=== PATIENT | male | born 1965 | race Caucasian/White ===

== ENCOUNTER 2016-10-01 08:20 | Emergency (ER) | payer BC ==
[2016-10-01 09:21] LABS: Hematocrit 44 % (42-52); Hemoglobin 14.7 g/dl (14.0-18.0); Mean Corpuscular HGB Conc 33 g/dl (31-36); Mean Corpuscular Hemoglobin 30 pg (27-31); Mean Corpuscular Volume 89 fL (80-94); Mean Platelet Volume 9 um3 (7.4-10.4); Red Blood Count 4.95 10^6/ul (4.0-5.4); Red Cell Distribution Width 14 % (10.5-15); White Blood Count 12.9 10^3/ul (3.5-10.8)
[2016-10-01 09:31] LABS: Albumin 4.3 g/dL (3.2-5.2); BUN/Creatinine Ratio 15.4 (8-20); Calcium 9.9 mg/dL (8.6-10.3); EGFR African American 136.1 (>60); EGFR Non-African American 105.8 (>60); Globulin 3.2 g/dL (2-4); Potassium 3.7 mmol/L (3.5-5.0); Total Bilirubin 0.8 mg/dL (0.2-1.0); Total Protein 7.5 g/dL (6.4-8.9)
[2016-10-01 09:42] VITALS: BP 138/88
--- NOTE | 2016-10-01 10:54 | ED ---
Daron Urban Benjamin, scribed for Raleigh Angel MD on 10/01/16 at 0902 . Lower Extremity - HPI Summary HPI Summary: 51yo [place]clot. Pt is 6 weeks s/p left ankle surgery and pt reports pain in left leg. - History of Current Complaint Chief Complaint: EDGeneral Stated Complaint: POSS BLOOD CLOT Time Seen by Provider: 10/01/16 08:45 Hx Obtained From: Patient Onset of Pain: Hours Onset/Duration: Hours Severity Initially: Moderate Severity Currently: Moderate Pain Intensity: 7 Pain Scale Used: 0-10 Numeric Timing: Constant Location: Is Discrete @ - LLE Associated Signs And Symptoms: Positive: Negative - Allergies/Home Medications Allergies/Adverse Reactions: Allergies Allergy/AdvReac Type Severity Reaction Status Date / Time No Known Allergies Allergy Verified 10/01/16 08:38 PMH/Surg Hx/FS Hx/Imm Hx Endocrine/Hematology History: Denies: Hx Diabetes, Hx Thyroid Disease Cardiovascular History: Denies: Hx Hypertension, Hx Pacemaker/ICD Respiratory History: Denies: Hx Asthma, Hx Chronic Obstructive Pulmonary Disease (COPD) GI History: Denies: Hx Ulcer History: Denies: Hx Renal Disease Musculoskeletal History: Denies: Hx Scoliosis Sensory History: Reports: Hx Contacts or Glasses - GLASSES Denies: Hx Hearing Aid Opthamlomology History: Reports: Hx Contacts or Glasses - GLASSES Neurological History: Denies: Hx Headaches Psychiatric History: Denies: Hx Panic Disorder - Surgical History Surgery Procedure, Year, and Place: [place] CARPAL TUNNEL Hx Anesthesia Reactions: No Infectious Disease History: No Infectious Disease History: Denies: Hx Hepatitis, Hx Human Immunodeficiency Virus (HIV), Traveled Outside the [place] in Last 30 Days - Family History Known Family History: Negative: Cardiac Disease, Hypertension, Diabetes - Social History Occupation: Employed Full-time Lives: With Family Alcohol Use: None Substance Use Type: Reports: None Smoking Status (MU): Former Smoker Amount Used/How Often: 1/2 PPD Review of Systems Constitutional: Negative Eyes: Negative ENT: Negative Cardiovascular: Negative Respiratory: Negative Gastrointestinal: Negative Genitourinary: Negative Positive: Myalgia - LLE pain Skin: Negative Neurological: Negative Psychological: Normal All Other Systems Reviewed And Are Negative: Yes Physical Exam Triage Information Reviewed: Yes Vital Signs On Initial Exam: Initial Vitals Temp Pulse Resp BP Pulse Ox 99.1 F 92 17 138/92 97 10/01/16 08:39 10/01/16 08:39 10/01/16 08:39 10/01/16 08:39 10/01/16 08:39 Vital Signs Reviewed: Yes Appearance: Positive: Well-Appearing, No Pain Distress, Well-Nourished Skin: Positive: Warm, Skin Color Reflects Adequate Perfusion, Dry Head/Face: Positive: Normal Head/Face Inspection Eyes: Positive: Normal ENT: Positive: Normal ENT inspection Neck: Positive: Supple, Nontender Respiratory/Lung Sounds: Positive: Clear to Auscultation, Breath Sounds Present Cardiovascular: Positive: RRR Abdomen Description: Positive: Nontender, Soft Bowel Sounds: Positive: Present Musculoskeletal: Positive: Strength/ROM Intact. Negative: Edema Left Neurological: Positive: Normal, Sensory/Motor Intact, Alert, Oriented to Person Place, Time, CN Intact II-III Diagnostics - Vital Signs Vital Signs Temp Pulse Resp BP Pulse Ox 10/01/16 08:39 99.1 F 92 17 138/92 97 - Laboratory Lab Results: Lab Results 10/01/16 10/01/16 10/01/16 Range/Units 09:00 09:00 09:00 WBC 12.9 H (3.5-10.8) 10^3/ul RBC 4.95 (4.0-5.4) 10^6/ul Hgb 14.7 (14.0-18.0) g/dl Hct 44 (42-52) % MCV 89 (80-94) fL MCH 30 (27-31) pg MCHC 33 (31-36) g/dl RDW 14 (10.5-15) % Plt Count 197 (150-450) 10^3/ul MPV 9 (7.4-10.4) um3 Neut % (Auto) 75.6 (38-83) % Lymph % (Auto) 16.3 L (25-47) % [place] % (Auto) 5.8 (1-9) % Eos % (Auto) 2.0 (0-6) % Baso % (Auto) 0.3 (0-2) % Absolute Neuts (auto) 9.8 H (1.5-7.7) 10^3/ul Absolute Lymphs (auto) 2.1 (1.0-4.8) 10^3/ul Absolute Monos (auto) 0.8 (0-0.8) 10^3/ul Absolute Eos (auto) 0.3 (0-0.6) 10^3/ul Absolute Basos (auto) 0 (0-0.2) 10^3/ul Absolute Nucleated RBC 0 10^3/ul Nucleated RBC % 0 INR (Anticoag Therapy) 1.12 H (0.89-1.11) Sodium 136 (133-145) mmol/L Potassium 3.7 (3.5-5.0) mmol/L Chloride 103 (101-111) mmol/L Carbon Dioxide 25 (22-32) mmol/L Anion Gap 8 (2-11) mmol/L BUN 12 (6-24) mg/dL Creatinine 0.78 (0.67-1.17) mg/dL Est GFR ( Amer) 136.1 (>60) Est GFR (Non-Af Amer) 105.8 (>60) BUN/Creatinine Ratio 15.4 (8-20) Glucose 111 H (70-100) mg/dL Calcium 9.9 (8.6-10.3) mg/dL Total Bilirubin 0.80 (0.2-1.0) mg/dL AST 17 (13-39) U/L ALT 31 (7-52) U/L Alkaline Phosphatase 66 (34-104) U/L Total Protein 7.5 (6.4-8.9) g/dL Albumin 4.3 (3.2-5.2) g/dL Globulin 3.2 (2-4) g/dL Albumin/Globulin Ratio 1.3 (1-3) Result Diagrams: 10/01/16 09:00 10/01/16 09:00 Lab Statement: Any lab studies that have been ordered have been reviewed, and results considered in the medical decision making process. Lower Extremity Course/Dx - Course Course Of Treatment: Mr. Wright presented stable with a DVT found in U/S. He has recently been on Lovenox and I will continue that and send him for F/U to be transitioned to PO meds. - Diagnoses Differential Diagnosis/HQI/PQRI: Positive: DVT Provider Diagnoses: DVT (deep venous thrombosis) Discharge - Discharge Plan Condition: Stable Disposition: HOME Prescriptions: Enoxaparin(*) [Lovenox(*)] 100 mg SUBCUT Q12HR #10 syringe Patient Education Materials: Leg Edema (ED) Referrals: Lilly Jesus NP [Primary Care Provider] - Additional Instructions: Please Follow up with your doctor in 2 days for your condition. The documentation as recorded by the Daron madsen Benjamin accurately reflects the service I personally performed and the decisions made by me, Raleigh Angel MD.
== END 2016-10-01 09:42 | disposition home or self-care (01) ==
LOC: ED 08:20
DX: I82.402 Acute embolism and thrombosis of unspecified deep veins of left lower extremity (principal); M79.605 Pain in left leg; Z87.891 Personal history of nicotine dependence
CPT/HCPCS: 36415; 80053; 85025; 85610; 99282

== ENCOUNTER 2016-12-17 09:01 | Emergency (ER) | payer BC ==
[2016-12-17] MEDS ORDERED: Ondansetron INJ* 2 MG/ML VIAL IV ONE (09:16)
[2016-12-17] MEDS ORDERED: HYDROmorphone* 1 MG/ML 1 ML SYR IV ONE (09:16)
[2016-12-17 09:39] LABS: Hematocrit 45 % (42-52); Hemoglobin 14.9 g/dl (14.0-18.0); Mean Corpuscular HGB Conc 33 g/dl (31-36); Mean Corpuscular Hemoglobin 30 pg (27-31); Mean Corpuscular Volume 90 fL (80-94); Mean Platelet Volume 9 um3 (7.4-10.4); Red Blood Count 4.99 10^6/ul (4.0-5.4); Red Cell Distribution Width 15 % (10.5-15)
[2016-12-17 09:57] LABS: Albumin 4.5 g/dL (3.2-5.2); BUN/Creatinine Ratio 16.5 (8-20); C Reactive Protein 4.8 mg/L (< 5.00); Calcium 9.6 mg/dL (8.6-10.3); EGFR African American 113.9 (>60); EGFR Non-African American 88.6 (>60); Globulin 2.7 g/dL (2-4); Potassium 3.6 mmol/L (3.5-5.0); Total Bilirubin 0.8 mg/dL (0.2-1.0); Total Protein 7.2 g/dL (6.4-8.9)
--- NOTE | 2016-12-17 09:59 | RAD ---
INDICATION: Nephrolithiasis. Left flank pain COMPARISON: CT March 01, 2014 TECHNIQUE: Noncontrast axial source images were acquired from the level hemidiaphragms to the symphysis pubis as part of CT imaging for renal stone. Lung bases: The lung bases are clear. Liver: The liver is enlarged with findings of hepatic steatosis. Noncontrast imaging shows no evidence of a hepatic mass or ductal dilatation. Gallbladder: There are no calcified gallstones. There is no evidence of wall thickening or pericholecystic fluid.. Spleen: The spleen is normal in size. The noncontrast CT appearance is normal. Pancreas: Noncontrast imaging shows no pancreatic mass or ductal dilitation. Adrenal glands: No masses are identified. Kidneys/Bladder: There are multiple tiny bilateral renal calculi. These calculi measure 2 to 3 mm. There is no obstruction. No renal mass is seen on noncontrast imaging. There is a tiny calculus within the bladder measuring 2 mm. Adenopathy: There is no evidence of intraperitoneal or retroperitoneal adenopathy. Evaluation is limited without oral contrast. Fluid collections: There are no free or localized fluid collections. Vessels: The aorta and iliac vessels are normal in caliber. There are no significant atherosclerotic changes. The IVC appears normal Pelvic organs: The prostate and seminal vesicles appear normal GI tract: Evaluation of the bowel is limited without oral contrast. There is a hiatal hernia. The small bowel is unremarkable. There are scattered diverticula of the colon. The appendix appears normal. Soft tissues: No soft tissue abnormalities of the extraperitoneal abdomen or pelvis are identified. Osseous structures: There are no acute osseous findings. There is spondylitic change of the thoracic spine. There is degenerative disc disease about L5-S1 with minor spur perforation and facet arthropathy IMPRESSION: 1. Bilateral nonobstructive nephrolithiasis. Small bladder calculus which may be related to recently passed stone. 2. Small hiatal hernia 3. Scattered diverticula. No CT evidence of acute diverticulitis. 4. Hepatomegaly with hepatic steatosis.
[2016-12-17 11:07] VITALS: BP 140/98
--- NOTE | 2016-12-17 12:51 | ED ---
GI/ HPI - HPI Summary HPI Summary: Patient arrives to ED with CC of left flank pain since this morning. History of kidney stones bilaterally and states this feels similar. Denies urinary symptoms such as retention, urgency, frequency or any known passing of a stone. Patient denies abdominal pain. Pain in L flank does not radiate and is constant. He rates it 8/10. Last CT scan was several years ago, and he does not see a urologist regularly. Denies other health history. He notes to nausea and 1 episode of vomiting d/t pain this am. - History of Current Complaint Chief Complaint: EDFlankPain Time Seen by Provider: 12/17/16 09:14 Stated Complaint: LT SIDE FLANK PAIN Hx Obtained From: Patient Onset/Duration: Started Hours Ago Timing: Constant Severity: Moderate Current Severity: Moderate Pain Intensity: 8 Location of Pain: Flank - left Pain Characteristics: Sharp, Colicy Associated Signs and Symptoms: Positive: Back Pain, Nausea, Vomiting Aggravating Factor(s): Nothing Alleviating Factor(s): Nothing - Allergy/Home Medications Allergies/Adverse Reactions: Allergies Allergy/AdvReac Type Severity Reaction Status Date / Time No Known Allergies Allergy Verified 12/17/16 09:02 PMH/Surg Hx/FS Hx/Imm Hx Previously Healthy: Yes Endocrine/Hematology History: Denies: Hx Diabetes, Hx Thyroid Disease Cardiovascular History: Denies: Hx Hypertension, Hx Pacemaker/ICD Respiratory History: Denies: Hx Asthma, Hx Chronic Obstructive Pulmonary Disease (COPD) GI History: Denies: Hx Ulcer History: Denies: Hx Renal Disease Musculoskeletal History: Denies: Hx Scoliosis Sensory History: Reports: Hx Contacts or Glasses - GLASSES Denies: Hx Hearing Aid Opthamlomology History: Reports: Hx Contacts or Glasses - GLASSES Neurological History: Denies: Hx Headaches Psychiatric History: Denies: Hx Panic Disorder - Surgical History Surgery Procedure, Year, and Place: 1984 LEFT LITTLE FINGER REPAIR, [place]. LT CARPAL TUNNEL Hx Anesthesia Reactions: No Infectious Disease History: No Infectious Disease History: Denies: Hx Hepatitis, Hx Human Immunodeficiency Virus (HIV), Traveled Outside the [place] in Last 30 Days - Family History Known Family History: Negative: Cardiac Disease, Hypertension, Diabetes - Social History Occupation: Employed Full-time Lives: With Family Alcohol Use: None Substance Use Type: Reports: None Hx Tobacco Use: No Smoking Status (MU): Former Smoker Amount Used/How Often: 1/2 PPD Review of Systems Constitutional: Negative Eyes: Negative Cardiovascular: Negative Respiratory: Negative Positive: Vomiting, Nausea Positive: flank pain Musculoskeletal: Negative Neurological: Negative Psychological: Normal All Other Systems Reviewed And Are Negative: Yes Physical Exam Triage Information Reviewed: Yes Vital Signs On Initial Exam: Initial Vitals Temp Pulse Resp BP Pulse Ox 98.5 F 90 20 172/120 99 12/17/16 09:02 12/17/16 09:02 12/17/16 09:02 12/17/16 09:02 12/17/16 09:02 Vital Signs Reviewed: Yes Appearance: Positive: Well-Appearing, Well-Nourished Skin: Positive: Warm, Skin Color Reflects Adequate Perfusion Head/Face: Positive: Normal Head/Face Inspection Eyes: Positive: SAMMIE, Conjunctiva Clear Neck: Positive: Supple, No Lymphadenopathy Respiratory/Lung Sounds: Positive: Clear to Auscultation, Breath Sounds Present Cardiovascular: Positive: Normal Abdomen Description: Positive: Soft Bowel Sounds: Positive: Present Musculoskeletal: Positive: Normal, Strength/ROM Intact Psychiatric: Positive: Normal AVPU Assessment: Alert - [place] Coma Scale Coma Scale Total: 15 Diagnostics - Vital Signs Vital Signs Temp Pulse Resp BP Pulse Ox 12/17/16 11:06 97.3 F 81 20 140/98 90 12/17/16 11:00 64 97 12/17/16 10:30 56 114/77 97 12/17/16 10:00 56 111/77 93 12/17/16 09:44 131/89 12/17/16 09:33 59 92 12/17/16 09:23 30 12/17/16 09:13 60 99 12/17/16 09:11 173/109 12/17/16 09:02 98.5 F 90 20 172/120 99 - Laboratory Lab Results: Lab Results 12/17/16 12/17/16 Range/Units 09:20 09:20 WBC 9.0 (3.5-10.8) 10^3/ul RBC 4.99 (4.0-5.4) 10^6/ul Hgb 14.9 (14.0-18.0) g/dl Hct 45 (42-52) % MCV 90 (80-94) fL MCH 30 (27-31) pg MCHC 33 (31-36) g/dl RDW 15 (10.5-15) % Plt Count 192 (150-450) 10^3/ul MPV 9 (7.4-10.4) um3 Neut % (Auto) 59.9 (38-83) % Lymph % (Auto) 29.1 (25-47) % [place] % (Auto) 7.2 (1-9) % Eos % (Auto) 3.3 (0-6) % Baso % (Auto) 0.5 (0-2) % Absolute Neuts (auto) 5.4 (1.5-7.7) 10^3/ul Absolute Lymphs (auto) 2.6 (1.0-4.8) 10^3/ul Absolute Monos (auto) 0.6 (0-0.8) 10^3/ul Absolute Eos (auto) 0.3 (0-0.6) 10^3/ul Absolute Basos (auto) 0 (0-0.2) 10^3/ul Absolute Nucleated RBC 0.01 10^3/ul Nucleated RBC % 0.1 Sodium 136 (133-145) mmol/L Potassium 3.6 (3.5-5.0) mmol/L Chloride 105 (101-111) mmol/L Carbon Dioxide 24 (22-32) mmol/L Anion Gap 7 (2-11) mmol/L BUN 15 (6-24) mg/dL Creatinine 0.91 (0.67-1.17) mg/dL Est GFR ( Amer) 113.9 (>60) Est GFR (Non-Af Amer) 88.6 (>60) BUN/Creatinine Ratio 16.5 (8-20) Glucose 139 H (70-100) mg/dL Calcium 9.6 (8.6-10.3) mg/dL Total Bilirubin 0.80 (0.2-1.0) mg/dL AST 24 (13-39) U/L ALT 46 (7-52) U/L Alkaline Phosphatase 51 (34-104) U/L C-Reactive Protein 4.80 (< 5.00) mg/L Total Protein 7.2 (6.4-8.9) g/dL Albumin 4.5 (3.2-5.2) g/dL Globulin 2.7 (2-4) g/dL Albumin/Globulin Ratio 1.7 (1-3) Lipase 16 (11.0-82.0) U/L Result Diagrams: 12/17/16 09:20 12/17/16 09:20 Lab Statement: Any lab studies that have been ordered have been reviewed, and results considered in the medical decision making process. GIGU Course/Dx - Course Course Of Treatment: CT abd pelvis shows: IMPRESSION: 1. Bilateral nonobstructive nephrolithiasis. Small bladder calculus which may be related. to recently passed stone. 2. Small hiatal hernia. 3. Scattered diverticula. No CT evidence of acute diverticulitis. 4. Hepatomegaly with hepatic steatosis. Patient given dilaudid 1 mg. Zofran given. Improved symptoms. Patient given flomax and norco for symptoms and passage of stone. Patient OK with discharge and will follow up with Dr. Fields for worsening symptoms. - Diagnoses Differential Diagnoses - Male: Renal Calculi, Renal Colic, Ureteral Calculi, Urinary Tract Infection Provider Diagnoses: Nephrolithiasis Discharge - Discharge Plan Condition: Stable Disposition: HOME Prescriptions: Hydrocodone/Acetamin 10/325(NF [[place] 10/325 (NF)] 1 tab PO Q6H #10 tab MDD 4 Tamsulosin CAP* [Flomax CAP*] 0.4 mg PO BEDTIME PRN #10 cap MDD 1 PRN Reason: Pain Patient Education Materials: Kidney Stones (ED) Referrals: Lilly Jesus, ENVIRONMENTAL MAINTENANCE WORKER [Primary Care Provider] - Kamran ZAMUDIO,Олег Beal [Medical Doctor] - Additional Instructions: Take flomax every night until passage of stones, or until gone. Tylenol 650mg three times daily for pain. [place] as needed for breakthrough pain not well controlled with Tylenol. Strain urine for visualization of passage of stones. If symptoms do not improve or become worse, follow up with urology.
== END 2016-12-17 11:06 | disposition home or self-care (01) ==
LOC: ED 09:01
DX: N20.0 Calculus of kidney (principal); M54.9 Dorsalgia, unspecified; R11.2 Nausea with vomiting, unspecified; Z87.891 Personal history of nicotine dependence
CPT/HCPCS: 36415; 74176; 80053; 83690; 85025; 86140; 99283; J1170; J2405

== ENCOUNTER 2019-04-30 20:38 | Emergency (ER) | payer BC ==
[2019-04-30] MEDS ORDERED: Ketorolac INJ* 30 MG/ML 1 ML VIAL IV PUSH ONE (21:24)
[2019-04-30] MEDS ORDERED: NS 0.9% 1000 ML** 1,000 ML IV ONE (21:24)
[2019-04-30] MEDS ORDERED: Ondansetron INJ* 2 MG/ML VIAL IV ONE (21:24)
[2019-04-30] MEDS ORDERED: Morphine 4 MG/ML VIAL (1 ml) 4 MG/ML VIAL IV ONE (21:25)
[2019-04-30 21:45] LABS: ABS Basophils 0.1 10^3/ul (0-0.2); ABS Eosinophils 0.3 10^3/ul (0-0.6); ABS Lymphocytes 2.3 10^3/ul (1.0-4.8); ABS Monocytes 0.5 10^3/ul (0-0.8); ABS Neutrophils 8.2 10^3/ul (1.5-7.7); Hematocrit 40 % (42-52); Hemoglobin 13.6 g/dL (14.0-18.0); Lymphocyte % 19.9 %; Mean Corpuscular HGB Conc 34 g/dL (31-36); Mean Corpuscular Hemoglobin 31 pg (27-31); Mean Corpuscular Volume 92 fL (80-94); Mean Platelet Volume 9.1 fL (7.4-10.4); Platelet Count 200 10^3/uL (150-450); Red Blood Count 4.34 10^6 /uL (4.18-5.48); Red Cell Distribution Width 14 % (10-15); White Blood Count 11.4 10^3/uL (3.5-10.8)
--- NOTE | 2019-04-30 21:57 | ED ---
GI/ HPI - HPI Summary HPI Summary: 54-year-old male presents with right-sided flank pain today. States of history of kidney stones and feels the same. He states he is not able to urinate since the pain started. He admits to nausea vomiting. No diarrhea or constipation. No chest pressure or shortness of breath. Did not taking anything for the pain. No fevers. - History of Current Complaint Chief Complaint: EDFlankPain Time Seen by Provider: 04/30/19 21:21 Stated Complaint: KIDNEY STONE PER PT Pain Intensity: 10 - Allergy/Home Medications Allergies/Adverse Reactions: Allergies Allergy/AdvReac Type Severity Reaction Status Date / Time No Known Allergies Allergy Verified 04/30/19 20:41 PMH/Surg Hx/FS Hx/Imm Hx Endocrine/Hematology History: Denies: Hx Diabetes, Hx Thyroid Disease Cardiovascular History: Reports: Hx Hypertension - ON MEDICATION FOR, Other Cardiovascular Problems/Disorders - LEFT LEG DVT-09/2016 Denies: Hx Pacemaker/ICD Respiratory History: Denies: Hx Asthma, Hx Chronic Obstructive Pulmonary Disease (COPD) GI History: Denies: Hx Ulcer History: Reports: Hx Kidney Stones - LAST 02/2017 Denies: Hx Renal Disease Musculoskeletal History: Denies: Hx Scoliosis Sensory History: Reports: Hx Contacts or Glasses - GLASSES Denies: Hx Hearing Aid Opthamlomology History: Reports: Hx Contacts or Glasses - GLASSES Neurological History: Denies: Hx Headaches Psychiatric History: Denies: Hx Panic Disorder - Surgical History Surgery Procedure, Year, and Place[place] LT CARPAL TUNNEL. 08/19/16 LT ANKLE-REPAIR OF TENDONS (WITH ANCHORS ) & SHAVED BONE Hx Anesthesia Reactions: Yes - NAUSEA AND VOMITING Infectious Disease History: No Infectious Disease History: Denies: Hx Hepatitis, Hx Human Immunodeficiency Virus (HIV), Traveled Outside the in Last 30 Days - Family History Known Family History: Negative: Cardiac Disease, Hypertension, Diabetes - Social History Alcohol Use: None Substance Use Type: Reports: None Smoking Status (MU): Former Smoker Amount Used/How Often: 1/2 PPD X 6 YEARS Have You Smoked in the Last Year: No Review of Systems Negative: Fever Negative: Chest Pain Negative: Shortness Of Breath Positive: flank pain All Other Systems Reviewed And Are Negative: Yes Physical Exam Triage Information Reviewed: Yes Vital Signs On Initial Exam: Initial Vitals Temp Pulse Resp BP Pulse Ox 99.1 F 74 18 160/106 97 04/30/19 20:40 04/30/19 20:40 04/30/19 20:40 04/30/19 20:40 04/30/19 20:40 Vital Signs Reviewed: Yes Appearance: Positive: Well-Appearing Skin: Positive: Warm, Dry Head/Face: Positive: Normal Head/Face Inspection Eyes: Positive: Normal, Conjunctiva Clear ENT: Positive: Pharynx normal Respiratory/Lung Sounds: Positive: Clear to Auscultation, Breath Sounds Present Cardiovascular: Positive: Normal, RRR Abdomen Description: Positive: Nontender, Soft, CVA Tenderness (R). Negative: CVA Tenderness (L) Bowel Sounds: Positive: Present Musculoskeletal: Positive: Normal Neurological: Positive: Normal Psychiatric: Positive: Normal Diagnostics - Vital Signs Vital Signs Temp Pulse Resp BP Pulse Ox 04/30/19 21:40 16 04/30/19 20:40 99.1 F 74 18 160/106 97 - Laboratory Lab Results: Lab Results 04/30/19 Range/Units 21:36 WBC 11.4 H (3.5-10.8) 10^3/uL RBC 4.34 (4.18-5.48) 10^6 /uL Hgb 13.6 L (14.0-18.0) g/dL Hct 40 L (42-52) % MCV 92 (80-94) fL MCH 31 (27-31) pg MCHC 34 (31-36) g/dL RDW 14 (10-15) % Plt Count 200 (150-450) 10^3/uL MPV 9.1 (7.4-10.4) fL Neut % (Auto) 71.9 % Lymph % (Auto) 19.9 % [place] % (Auto) 4.6 % Eos % (Auto) 3.0 % Baso % (Auto) 0.6 % Absolute Neuts (auto) 8.2 H (1.5-7.7) 10^3/ul Absolute Lymphs (auto) 2.3 (1.0-4.8) 10^3/ul Absolute Monos (auto) 0.5 (0-0.8) 10^3/ul Absolute Eos (auto) 0.3 (0-0.6) 10^3/ul Absolute Basos (auto) 0.1 (0-0.2) 10^3/ul Absolute Nucleated RBC 0.0 10^3/ul Nucleated RBC % 0.0 Result Diagrams: 04/30/19 21:36 04/30/19 21:36 Lab Statement: Any lab studies that have been ordered have been reviewed, and results considered in the medical decision making process. - CT abd CT Interpretation Completed By: Radiologist Summary of CT Findings: IMPRESSION: 1. Minimally obstructing 7 mm calculus distal third right ureter. 2. Bilateral nephrolithiasis. 3. Mild hepatic steatosis (5-14% fat fraction). 4. Distal colonic diverticulosis. Re-Evaluation - Re-Evaluation First Eval Re-Evaluation Time: 22:58 Change: Unchanged Comment: still in extreme pain Second Eval Re-Evaluation Time: 01:06 Change: Improved Comment: wants to be discharged GIGU Course/Dx - Course Course Of Treatment: 54-year-old male presents with right-sided flank pain today. States of history of kidney stones and feels the same. He states he is not able to urinate since the pain started. He admits to nausea vomiting. No diarrhea or constipation. No chest pressure or shortness of breath. Did not taking anything for the pain. No fevers. On exam tenderness of right flank. wbc 11. crp normal. CT shows 7mm stone. urine no infection. was able to control patient pain in ED. will discharge with pain meds and flomax. told to est care with urology and follow up. patient understand and agrees with plan. - Diagnoses Differential Diagnoses - Male: Pyelonephritis, Ureteral Calculi, Urinary Tract Infection Provider Diagnoses: Ureteral stone Discharge - Sign-Out/Discharge Documenting (check all that apply): Patient Departure Patient Received Moderate/Deep Sedation with Procedure: No - Discharge Plan Condition: Good Disposition: HOME Prescriptions: HYDROcodone/ACETAMIN 5-325 MG* [[place] 5-325 TAB*] 1 tab PO Q4H PRN #20 tab MDD 6 PRN Reason: Pain - Severe Ondansetron ODT TAB* [Zofran 4 MG Odt TAB*] 4 mg PO Q6H PRN #20 tab.odt PRN Reason: Nausea Tamsulosin CAP* [Flomax CAP*] 0.4 mg PO DAILY #7 cap Patient Education Materials: Ureteral Stones (ED) Referrals: Aundrea Mitchell NP [Primary Care Provider] - Rene Baer MD [Medical Doctor] - Additional Instructions: Take ibuprofen every 6 hours and norco as needed every 4-6 hours Take Zofran every 6 hours for nausea as needed Take Flomax daily starting tomorrow, first dose given in ED until stone expelled , make sure stand up slowly Follow up with urology, call office for appointment Strain urine until collect stone Return to ED if unable to manage pain at home, develop fever, or any new or worsening symptoms - Billing Disposition and Condition Condition: GOOD Disposition: Home
[2019-04-30 22:03] LABS: Albumin 4.5 g/dL (3.2-5.2); BUN/Creatinine Ratio 21.3 (8-20); C Reactive Protein 1.5 mg/L (<8.01); Calcium 9.3 mg/dL (8.6-10.3); EGFR Non-African American 84.3 (>60); Globulin 2.2 g/dL (2-4); Potassium 3.6 mmol/L (3.5-5.0); Total Bilirubin 0.6 mg/dL (0.2-1.0); Total Protein 6.7 g/dL (6.4-8.9)
[2019-04-30] MEDS ORDERED: HYDROmorphone INJ1* 1 MG/ML SYRINGE IV ONE (22:58)
[2019-04-30 23:40] VITALS: BP 149/95
[2019-05-01] MEDS ORDERED: O ndansetron ODT 4MG 5TAB PRPK 4 MG PAK PO ONE (00:35)
[2019-05-01] MEDS ORDERED: Tamsulosin CAP* 0.4 MG PO ONE (00:35)
[2019-05-01 00:36] LABS: Urine Appearance Clear; Urine Bacteria Absent (Absent); Urine Bilirubin Negative (Negative); Urine Blood 3+ (Negative); Urine Color Yellow; Urine Glucose Negative (Negative); Urine Ketones Negative (Negative); Urine Nitrite Negative (Negative); Urine Protein 1+(30 mg/dL) (Negative); Urine Red Blood Cell 3+(>10/hpf) (Absent); Urine Urobilinogen Negative (Negative); Urine White Blood Cell Trace(0-5/hpf) (Absent)
== END 2019-05-01 01:09 | disposition home or self-care (01) ==
LOC: ED 20:38
DX: N20.2 Calculus of kidney with calculus of ureter (principal); Z87.442 Personal history of urinary calculi; K76.0 Fatty (change of) liver, not elsewhere classified; K57.30 Diverticulosis of large intestine without perforation or abscess without bleeding; R11.2 Nausea with vomiting, unspecified; I10 Essential (primary) hypertension; Z87.891 Personal history of nicotine dependence
CPT/HCPCS: 36415; 74176; 80053; 81003; 81015; 83605; 83690; 85025; 86140; 87086; 96361; 96374; 96375; 99283; A9270-GY; J1170; J1885; J2270; J2405

== ENCOUNTER 2020-10-11 07:24 | Inpatient (IN) ==
[~2020-10-11 07:24] MED LIST: Buffered Lidocaine 1% SYRIN 1 ml INTRADERM ONE; Famotidine IV 10 MG/ML 2 ml VIAL (20 mg) IV ONE; Lactated Ringers 1000 ml BAG 1,000 ML IV SCH
[2020-10-11] MEDS ORDERED: ceFAZolin 2 GM PREMIX 2 GM/50 ML BAG ONE (07:55)
[2020-10-11] MEDS ORDERED: Tranexamic Acid 1 GM/100ML BAG 0 MG/0 ML BAG IV ONE (07:55)
[2020-10-11] MEDS ORDERED: Buffered Lidocaine 1% SYRIN 1 ml INTRADERM ONE (07:56)
[2020-10-11] MEDS ORDERED: Famotidine IV 10 MG/ML 2 ml VIAL (20 mg) ONE (07:56)
[2020-10-11] MEDS ORDERED: Propofol 10 MG/ML 20 ML BTL ONE ×4 (08:00→10:12)
[2020-10-11] MEDS ORDERED: Midazolam 2 mg/2 ml VIAL 1 mg/ml 2 ml VIAL (2 mg) ONE (08:12)
[2020-10-11] MEDS ORDERED: fentaNYL 100 mcg/2 ml 50 MCG/ML VIAL ONE (08:27)
[2020-10-11] MEDS ORDERED: Lidocaine 2% PF 5 ML VIAL ONE (08:27)
[2020-10-11] MEDS ORDERED: Midazolam 5 mg/5 ml VIAL 1 mg/ml 5 ml VIAL (5 mg) ONE (08:27)
[2020-10-11] MEDS ORDERED: ROPIVACAINE 5 MG/ML 30 ML BTL (0.5%) ONE ×2 (08:28→09:15)
[2020-10-11] MEDS ORDERED: Ondansetron 4 mg VIAL 2 MG/ML 2 ml VIAL ONE ×2 (08:39→10:04)
[2020-10-11] MEDS ORDERED: Phenylephrine IV 10 MG/ML 1 ml VIAL ONE (10:02)
[2020-10-11] MEDS ORDERED: fentaNYL 100 mcg/2 ml 50 MCG/ML VIAL IV PRN (10:55)
[2020-10-11] MEDS ORDERED: HYDROmorphone 1 MG/1 ML SYRINGE IV PRN (10:55)
[2020-10-11] MEDS ORDERED: Ondansetron 4 mg VIAL 2 MG/ML 2 ml VIAL IV PRN ×2 (10:55→11:41)
[2020-10-11] MEDS ORDERED: Naloxone 0.4 mg VIAL 0.4 mg/ml 1 ml VIAL IV PRN (10:55)
[2020-10-11] MEDS ORDERED: Magnesium Hydroxide LIQ 30 ML UDC PO PRN (11:41)
[2020-10-11] MEDS ORDERED: diPHENhydraMINE IV 50 MG/ML 1 ml VIAL (BENADRYL) IV PRN (11:41)
[2020-10-11] MEDS ORDERED: Ondansetron ODT 4 mg TAB 4 MG TAB PO PRN (11:41)
[2020-10-11] MEDS ORDERED: diPHENhydraMINE 25 mg TAB PO PRN (11:41)
[2020-10-11] MEDS ORDERED: Lactulose 30 ml UDC PO PRN (11:41)
[2020-10-11] MEDS ORDERED: Morphine 2 MG/ML SYRINGE IV PRN (11:41)
[2020-10-11] MEDS: Lactated Ringers 1000 ml BAG 1,000 ML IV SCH ×2 (12:53→22:40)
[2020-10-11] MEDS: ceFAZolin 1 GM ADVAN 1 GM in NS 0.9% 50 ML 50 ML IVPB SCH (17:01)
[2020-10-11] MEDS: Magnesium Hydroxide LIQ 30 ML UDC PO SCH (20:11)
[2020-10-12] MEDS: ceFAZolin 1 GM ADVAN 1 GM in NS 0.9% 50 ML 50 ML IVPB SCH ×2 (02:29→11:32)
[2020-10-12 05:21] LABS: Hematocrit 34 % (42-52); Hemoglobin 11.7 g/dL (14.0-18.0); Mean Platelet Volume 9.4 fL (7.4-10.4); Platelet Count 179 10^3/uL (150-450)
[2020-10-12 05:43] LABS: BUN/Creatinine Ratio 23.3 (8-20); Calcium 8.4 mg/dL (8.6-10.3); EGFR African American 112.6 (>60); Potassium 3.9 mmol/L (3.5-5.0)
[2020-10-12 08:46] VITALS: BP 138/78
[2020-10-12] MEDS ORDERED: Vitamin THERAPEUTIC TAB PO SCH (09:00)
[2020-10-12] MEDS: Magnesium Hydroxide LIQ 30 ML UDC PO SCH (10:24)
[2020-10-14] MEDS ORDERED: Scopolamine PATCH Remove NOTE PATCH OFF ONE (06:00)
== END 2020-10-12 13:48 | disposition home or self-care (01) | DRG 302 ==
LOC: INTOOBSV 07:24 → AA 07:24 → SSU 12:43
PROVIDERS: ADMIT Orthopaedic Surgery Adult Reconstructive Orthopaedic Surgery; ATTEND Orthopaedic Surgery Adult Reconstructive Orthopaedic Surgery